=== PATIENT | male | born 1945 | race Caucasian/White ===

== ENCOUNTER 2018-05-18 14:11 | Emergency (ER) | payer OTHER ==
[~2018-05-18] VITALS: Ht 170.2 cm; Wt 68.0 kg
[2018-05-18 14:48] VITALS: BP 135/91
== END 2018-05-18 15:05 | disposition home or self-care (01) ==
LOC: ED 15:00
DX: F10.220 Alcohol dependence with intoxication, uncomplicated (principal)
CPT/HCPCS: 99283